=== PATIENT | male | born 1975 | race Caucasian/White ===

== ENCOUNTER 2018-10-04 20:28 | Emergency (ER) | payer OTHER, SELFPAY ==
[2018-10-04 20:35] VITALS: BP 121/78; PULSE 82; RESP 18; TEMP 37.3; O2SAT 95; BMI 21.5
--- NOTE | 2018-10-04 21:47 | ED.BACK ---
HPI - Back Pain/Injury <CÉSAR PenaBC - Last Filed: 10/04/18 21:58> General Chief Complaint: Back Pain/Injury Stated Complaint: states upper back pain Time Seen by Provider: 10/04/18 21:30 Source: patient Mode of arrival: ambulatory Limitations: no limitations History of Present Illness HPI Narrative: The patient is a 43-year-old male who presents with chief complaint of upper back pain that started last night. He states he did weight lifting 2 days ago to work out his back. He was evaluated [facility] urgent care earlier today. He states he was discharged with a list of exercises to do. He states his pain then got worse. He took ibuprofen most recently at 7:00 p.m.. He currently denies any pain on exam and interview, but states that his pain was better earlier today. He again repeats that he does not have any pain during his emergency department visit right now. He states his pain is worse with lying on his right side. He states it is approved by lying on his back or on his left side. He denies any numbness, tingling, weakness, incontinence of bowel, incontinence of bladder. He states he has taken muscle relaxers before several years ago and found them helpful at that point in time. He denies any trauma. He denies any falls. Related Data Previous Rx's Medication Instructions Recorded cyclobenzaprine 10 mg PO TID PRN #14 tab 10/04/18 Allergies Allergy/AdvReac Type Severity Reaction Status Date / Time No Known Allergies Allergy Uncoded 10/04/18 20:37 Review of Systems <GEOVANI Pena - Last Filed: 10/04/18 21:58> Review of Systems GENERAL: Denies chills, fatigue, malaise, fever, sweats. HEENT: Denies sinus pain, ear pain, sore throat, difficulty swallowing, dizziness. RESPIRATORY: Denies dyspnea, cough, wheezing, hemoptysis, sputum. CARDIOVASCULAR: Denies chest pain, palpitations, orthopnea, edema, GASTROINTESTINAL: Denies nausea, vomiting, abdominal pain, diarrhea, constipation, melena. : Denies dysuria, frequency, incontinence, hematuria, urinary retention. MUSCULOSKELETAL: See HPI SKIN: Denies rash, skin lesions, or other NEUROLOGIC: Denies weakness, headache, numbness, change in speech, confusion, seizures, incoordination. PSYCHIATRIC: No concerning psychosocial issues. 12 point review of systems is negative except for those stated above Exam <Kerlinejuwan HernandezFRANSICO sears-BC - Last Filed: 10/04/18 21:58> Narrative Exam Narrative: GENERAL: This is a well-nourished, well-developed patient, in no acute distress HEAD: Atraumatic. Normocephalic. No temporal or scalp tenderness. EYES: Pupils equal round and reactive. Extraocular motions intact. No scleral icterus. No injection or drainage. ENT: Nose without bleeding, purulent drainage or septal hematoma. Throat without erythema, tonsillar hypertrophy or exudate. Uvula midline. Airway patent. NECK: Trachea midline. No JVD or lymphadenopathy. Supple, nontender, no meningeal signs. CARDIOVASCULAR: Regular rate and rhythm without murmurs, gallops, or rubs. RESPIRATORY: Clear to auscultation. Breath sounds equal bilaterally. No wheezes, rales, or rhonchi. GASTROINTESTINAL: Abdomen soft, non-tender, nondistended. No hepato-splenomegaly, or palpable masses. No guarding. EXTREMITIES: No clubbing, cyanosis, or edema. No joint tenderness, effusion, or edema noted. Strength is equal upper and lower extremities bilaterally. Radialis and patellar reflexes are intact bilaterally. BACK: Nontender without deformity or crepitance. No flank tenderness. No pain to C-spine or spinal palpation. No pain to paraspinal muscle palpation bilaterally. NEURO: AOx3. Stable gait. Strength is equal upper and lower extremities bilaterally. No gross cranial nerve deficit. SKIN: No rash or erythema. Initial Vital Signs Initial Vital Signs: Vital Signs Temperature 99.1 F 10/04/18 20:35 Pulse Rate 82 10/04/18 20:35 Respiratory Rate 18 10/04/18 20:35 Blood Pressure 121/78 10/04/18 20:35 Pulse Oximetry 95 10/04/18 20:35 <Lux Camp DO - Last Filed: 10/05/18 03:01> Initial Vital Signs Initial Vital Signs: Vital Signs Temperature 99.1 F 10/04/18 20:35 Pulse Rate 82 10/04/18 20:35 Respiratory Rate 18 10/04/18 20:35 Blood Pressure 121/78 10/04/18 20:35 Pulse Oximetry 95 10/04/18 20:35 Course <FRANSICO Pena-BC - Last Filed: 10/04/18 21:58> Orders Ordered: Discontinued Medications Cyclobenzaprine HCl (Flexeril 10 Mg Prepack) 1 bottle MISC SEEINSTR ONE Stop: 10/04/18 21:48 Last Admin: 10/04/18 22:07 Dose: 1 bottle Vital Signs - 8 hr 10/04/18 20:35 10/04/18 22:09 Temperature 99.1 F 97.7 F Pulse Rate 82 62 Respiratory Rate 18 16 Blood Pressure 121/78 113/74 Pulse Oximetry 95 95 <Lux Camp DO - Last Filed: 10/05/18 03:01> Orders Ordered: Discontinued Medications Cyclobenzaprine HCl (Flexeril 10 Mg Prepack) 1 bottle MISC SEEINSTR ONE Stop: 10/04/18 21:48 Last Admin: 10/04/18 22:07 Dose: 1 bottle Vital Signs - 8 hr 10/04/18 20:35 10/04/18 22:09 Temperature 99.1 F 97.7 F Pulse Rate 82 62 Respiratory Rate 18 16 Blood Pressure 121/78 113/74 Pulse Oximetry 95 95 MDM - Back Pain/Injury <CÉSAR PenaBC - Last Filed: 10/04/18 21:58> MDM Narrative Medical decision making narrative: The patient is a 43-year-old male who presents with a chief complaint of upper back pain. He was already evaluated at a different emergency department earlier today. He has no red flag symptoms. He denies any pain on exam. He states he is not currently in any pain. His story correlates with muscle spasm especially given his history of recent weightlifting. I discussed at length the importance of following up with primary care provider and gave him contact information for the [facility] health human resources vice president. Discussed coming back to the emergency department for any acute concerns such as incontinence of bowel, incontinence of bladder etc. Patient has no questions or concerns upon discharge. Given the hour, I did give him a prepack of Flexeril. Discharge Plan Departure Patient Disposition: Home Clinical Impression: Back muscle spasm Discharge Date/Time: 10/04/18 22:10 Interventions: ED Discharge Assessment Last Done: 10/04/18 22:09 Instructions: DI for Back Spasm Activity Restrictions/Additional Instructions: I have given you a prescription of a muscle relaxer. The where this can be sedating. Do not combine with alcohol, driving or any other pain medication as that is a narcotic. I also suggest continuing use of NSAIDs. Please follow up with primary care provider. I have given you contact information for the [facility] human resources vice president. Please come back to emergency department for any acute concerns such as incontinence of bowel, incontinence of bladder Prescriptions: New cyclobenzaprine 10 mg tablet 10 mg PO TID PRN (Reason: muscle spasm) Qty: 14 RF: 0 Referrals: [facility] [Outside] <Lux Camp DO - Last Filed: 10/05/18 03:01> [facility] Attending Pamelaature Attestation: I was immediately available in the department for consultation. Documentation has been reviewed. I agree with assessment and plan.
--- NOTE | 2018-10-04 21:58 | PC.NURSE ---
PT states that he has a ioana the entire length of his back. No hx of upper back pain.
[2018-10-04] MEDS: CYCLOBENZAPRINE 10 MG PREPACK 1 BOTTLE MISC (22:07)
[2018-10-04 22:09] VITALS: BP 113/74; PULSE 62; RESP 16; TEMP 36.5; O2SAT 95
== END 2018-10-04 22:10 | disposition home or self-care (01) ==
PROVIDERS: Emergency Provider Nurse Practitioner Family
DX: M62.830 Muscle spasm of back (principal)
CPT/HCPCS: 99282; 99283

== ENCOUNTER 2018-10-16 13:43 | Emergency (ER) | payer OTHER, SELFPAY ==
--- NOTE | 2018-10-16 | DI.RAD.S_ITS ---
PROCEDURE: XR CHEST 1V INDICATIONS: POST THORACENTESIS CHEST TECHNIQUE: One view of the chest was acquired. COMPARISON: [facility], , XR CHEST 2V, 10/16/2018, 14:15. FINDINGS: Surgical changes and devices: None. Lungs and pleura: There is a moderate residual left effusion with left basilar atelectasis. No pneumothorax. Mediastinum: Mediastinal contours appear normal. Heart size is normal. Bones and chest wall: No suspicious bony lesions. Overlying soft tissues appear unremarkable. IMPRESSION: No pneumothorax post thoracentesis. Dictated by: Sherwin Flores M.D. on 10/16/2018 at 17:49 Approved by: Sherwin Flores M.D. on 10/16/2018 at 17:50
--- NOTE | 2018-10-16 | PATH_ITS ---
Note [facility] Accession Number: [id number] TESTS RESULT FLAG UNITS REF RANGE LAB Clinician Provided Cytology Information No. of containers..01 Other (Miscellaneous) 01 LEFT PLEURAL SPACE DIAGNOSIS: 02 LEFT PLEURAL SPACE NEGATIVE FOR MALIGNANT CELLS. THIS INTERPRETATION INCLUDES EVALUATION OF A CELL BLOCK. Pathologist ICD10: 02 J90 02 Rani Batista MD, Pathologist NPI- [id number] Sam Lowe, Supervisor [employer] ([facility]) 01 55 CC, RED, CLOUDY /LCS FLAG LEGEND: L-Low Normal,H-High Normal,LL-Alert Low,HH-Alert High <-Panic Low,>-Panic High,A-Abnormal,AA-Critical Abnormal Performed at: 01 =Z [facility] [address], [place] [address] Enrique Sommer MD, 02 LC[facility] [address] [place] [id number] Tanya Lucero MD, Performed at: 01 [facility] [address], [place], [place] [id number] MD Enrique Sommer MD Phone: [phone]
[2018-10-16 13:46] VITALS: BP 138/92; PULSE 102; RESP 15; TEMP 37.4; O2SAT 98; BMI 24.5
--- NOTE | 2018-10-16 13:49 | DI.RAD.S_ITS ---
PROCEDURE: XR CHEST 2V INDICATIONS: shortness of breath TECHNIQUE: 2 views of the chest were acquired. COMPARISON: None. FINDINGS: Surgical changes and devices: Postoperative changes of the spine are not adequately characterized. Lungs and pleura: There is a moderate to large opacity identified at the left base, which obscures the diaphragm. Additional areas of the interstitial prominence of the left hilar region is present. Mediastinum: Mediastinal contours are normal. Heart size is normal. Bones and chest wall: No suspicious bony abnormalities. Soft tissues appear unremarkable. IMPRESSION: Moderate to large left-sided pleural effusion with associated atelectasis. Superimposed pneumonia is difficult to exclude. Dictated by: Balaji Ch M.D. on 10/16/2018 at 13:25 Approved by: Balaji Ch M.D. on 10/16/2018 at 13:26
--- NOTE | 2018-10-16 13:52 | ED.SOB ---
HPI - SOB/Dyspnea General Chief Complaint: Shortness of Breath/Dyspnea Stated Complaint: Fluid in lungs Time Seen by Provider: 10/16/18 13:52 Source: patient Mode of arrival: ambulatory Limitations: no limitations History of Present Illness Patient is a 43-year-old female who was sent over by his primary doctor for concerns of an elevated D-dimer and also ?fluid on his lungs ?patient states that last week he had back pain. He states that was all throughout his back. He also states that he had some shortness of breath at that time. The back pain seems to have improved however over the past several days has had worsening shortness of breath. No chest pain. No cough. No fevers. He has had lymphoma but that was as a child. Not currently undergoing any treatment. He arrived today per instructions of his primary provider. Related Data Home Medications Medication Instructions Recorded Confirmed cyclobenzaprine 10 mg PO BEDTIME PRN 10/16/18 10/16/18 ibuprofen 1 dose PO PRN PRN 10/16/18 10/16/18 tamsulosin 0.4 mg PO DAILY PRN 10/16/18 10/16/18 Allergies Allergy/AdvReac Type Severity Reaction Status Date / Time No Known Drug Allergies Allergy Verified 10/16/18 13:46 Review of Systems Constitutional Denies fatigue and Denies fever(s) Cardiovascular Denies chest pain and Reports dyspnea Respiratory Denies chest congestion, Denies cough and Reports dyspnea Gastrointestinal Gastrointestinal: Denies abdominal pain, Denies nausea and Denies vomiting Genitourinary Denies dysuria Musculoskeletal Reports back pain Integumentary/Breasts Denies lesions and Denies rash Neurologic Denies behavioral changes Psychiatric Denies behavioral changes Endocrine Denies fatigue Hematologic/Lymphatic Denies easy bleeding and Denies easy bruising Allergic/Immunologic Denies urticaria [facility], LAT[facility] Medical History (Updated 10/16/18 @ 19:01 by Darnell Miguel DO) Lymphoma (Acute) Scoliosis (Acute) Social History Smoking Status: Smoker, status unknown Social History Smoking Status: Smoker, status unknown Exam Initial Vital Signs Initial Vital Signs: Vital Signs Temperature 99.3 F 10/16/18 13:46 Pulse Rate 102 H 10/16/18 13:46 Respiratory Rate 15 10/16/18 13:46 Blood Pressure 138/92 H 10/16/18 13:46 Pulse Oximetry 98 10/16/18 13:46 Const General: cooperative, comfortable, well developed, well groomed and No acute distress Orientation: alert, awake and oriented x3 HENMT Head: normal to inspection and normocephalic Resp Effort & Inspection: no grunting, not labored and tachypneic Auscultation: other (Decreased breath sounds on the left) Cardio Rate: tachycardic Rhythm: regular rhythm Pulses: radial pulses present GI Inspection: non-distended Palpation: soft Back/Spine/Pelvis Thoracic/Lumbar Spine: No thoracic spinal tenderness and No lumbar spinal tenderness Skin Lesions: no lesions Rashes: no rashes Neuro General: alert, awake and oriented x3 Extrem General: normal to inspection and capillary refill normal Psych Appearance: grossly normal and well kempt Scores GCS Afsaneh coma scale eye opening: Spontaneous Afsaneh coma scale verbal response: Orientated Afsaneh coma scale motor response: Obey commands Afsaneh coma scale total score: 15 Course Orders Ordered: ED Orders 10/16/18 13:49 XR chest 2V Stat EKG-12 Lead Stat Measure peak expiratory flow ONCE RT Consult Eval and Treat Now 10/16/18 14:05 B Type Natriuretic Peptide Stat Complete Blood Count AUTO DIFF Stat Comprehensive Metabolic Panel Stat D Dimer Stat Lactate (Lactic Acid) Stat Partial Thromboplastin Time Stat Prothrombin Time INR Stat Troponin I Stat 10/16/18 14:39 CT angio chest PE protocol Stat 10/16/18 16:22 US thoracentesis Stat 10/16/18 17:15 Body Fluid Culture Stat Cholesterol Body Fluid Stat Creatinine Body Fluid Stat Glucose Body Fluid Stat LDH Body Fluid Stat Total Protein Body Fluid Stat Triglycerides Body Fluid Stat 10/16/18 18:41 Lactate Dehydrogenase Stat Discontinued Medications Sodium Chloride (Normal Saline 0.9%) 1,000 mls @ 1,000 mls/hr IV BOLUS ONE Stop: 10/16/18 15:46 Last Infusion: 10/16/18 16:20 Dose: 0 mls/hr Admin: 10/16/18 15:03 Dose: 1,000 mls/hr Vital Signs - 8 hr 10/16/18 13:46 10/16/18 15:13 10/16/18 15:33 Temperature 99.3 F Pulse Rate 102 H 96 H 75 Respiratory Rate 15 20 18 Blood Pressure 138/92 H Blood Pressure [Right Arm] 139/92 H Pulse Oximetry 98 100 100 MDM - SOB/Dyspnea Lab Data Attestation: I reviewed the patient's lab results. Result diagrams: 10/16/18 14:05 10/16/18 14:05 Lab Results 10/16/18 10/16/18 10/16/18 Range/Units 14:05 14:05 14:05 WBC 8.0 (4.5-11.0) X10^3/uL RBC 4.33 L (4.5-5.9) X10^6/uL Hgb 13.4 L (13.5-17.5) g/dL Hct 37.9 L (41-53) % MCV 87.5 (80-100) fL MCH 30.9 (26-34) PG MCHC 35.3 (30-36) % RDW 12.1 (11.6-14.8) % Plt Count 314 (150-400) X10^3/uL Neut % (Auto) 78.4 H (50-75) % Lymph % (Auto) 9.7 L (25-40) % [place] % (Auto) 11.1 (3-14) % Eos % (Auto) 0.6 L (2-4) % Baso % (Auto) 0.2 (0-2) % Neut # (Auto) 6200 (0665-0421) /uL Lymph # (Auto) 800 L (1583-2829) /uL [place] # (Auto) 900 (0-900) /uL Eos # (Auto) 0 (0-450) /uL Baso # (Auto) 0 (0-100) /uL PT (10.1-12.7) SECONDS INR (0.9-1.3) APTT (26.4-36.2) SECONDS D-Dimer (<230) ng/mL Sodium 136 L (137-145) mmol/L Potassium 4.2 (3.4-5.1) mmol/L Chloride 98 (98-107) mmol/L Carbon Dioxide 28 (22-32) mmol/L BUN 15 (9-20) mg/dL Creatinine 0.80 (0.66-1.25) mg/dL Estimated GFR > 60.0 (>60) mL/min BUN/Creatinine Ratio 18.8 (6-22) Glucose 97 (70-100) mg/dL Lactate 0.9 (0.7-2.1) mmol/L Calcium 9.4 (8.4-10.2) mg/dL Total Bilirubin 0.8 (0.2-1.3) mg/dL AST 22 (17-59) IU/L ALT 30 (21-72) IU/L Alkaline Phosphatase 65 (38-126) U/L Troponin I (0.01-0.034) ng/mL B-Natriuretic Peptide (<100) Total Protein 7.8 (6.3-8.2) g/dL Albumin 4.1 (3.5-5.0) g/dL Globulin 3.7 (1.7-4.1) g/dL Albumin/Globulin Ratio 1.1 (1.0-2.8) Fluid Glucose mg/dL Fluid Total Protein g/dL Fluid LDH U/L Fluid Creatinine mg/dL Fluid Cholesterol mg/dL Fluid Triglycerides mg/dL 10/16/18 10/16/18 10/16/18 Range/Units 14:05 14:05 14:05 WBC (4.5-11.0) X10^3/uL RBC (4.5-5.9) X10^6/uL Hgb (13.5-17.5) g/dL Hct (41-53) % MCV (80-100) fL MCH (26-34) PG MCHC (30-36) % RDW (11.6-14.8) % Plt Count (150-400) X10^3/uL Neut % (Auto) (50-75) % Lymph % (Auto) (25-40) % [place] % (Auto) (3-14) % Eos % (Auto) (2-4) % Baso % (Auto) (0-2) % Neut # (Auto) (9627-9759) /uL Lymph # (Auto) (6982-5118) /uL [place] # (Auto) (0-900) /uL Eos # (Auto) (0-450) /uL Baso # (Auto) (0-100) /uL PT (10.1-12.7) SECONDS INR (0.9-1.3) APTT (26.4-36.2) SECONDS D-Dimer 1036 H (<230) ng/mL Sodium (137-145) mmol/L Potassium (3.4-5.1) mmol/L Chloride (98-107) mmol/L Carbon Dioxide (22-32) mmol/L BUN (9-20) mg/dL Creatinine (0.66-1.25) mg/dL Estimated GFR (>60) mL/min BUN/Creatinine Ratio (6-22) Glucose (70-100) mg/dL Lactate (0.7-2.1) mmol/L Calcium (8.4-10.2) mg/dL Total Bilirubin (0.2-1.3) mg/dL AST (17-59) IU/L ALT (21-72) IU/L Alkaline Phosphatase (38-126) U/L Troponin I < 0.012 (0.01-0.034) ng/mL B-Natriuretic Peptide < 100 (<100) Total Protein (6.3-8.2) g/dL Albumin (3.5-5.0) g/dL Globulin (1.7-4.1) g/dL Albumin/Globulin Ratio (1.0-2.8) Fluid Glucose mg/dL Fluid Total Protein g/dL Fluid LDH U/L Fluid Creatinine mg/dL Fluid Cholesterol mg/dL Fluid Triglycerides mg/dL 10/16/18 10/16/18 10/16/18 Range/Units 14:05 17:15 17:15 WBC (4.5-11.0) X10^3/uL RBC (4.5-5.9) X10^6/uL Hgb (13.5-17.5) g/dL Hct (41-53) % MCV (80-100) fL MCH (26-34) PG MCHC (30-36) % RDW (11.6-14.8) % Plt Count (150-400) X10^3/uL Neut % (Auto) (50-75) % Lymph % (Auto) (25-40) % [place] % (Auto) (3-14) % Eos % (Auto) (2-4) % Baso % (Auto) (0-2) % Neut # (Auto) (8432-7891) /uL Lymph # (Auto) (7080-3233) /uL [place] # (Auto) (0-900) /uL Eos # (Auto) (0-450) /uL Baso # (Auto) (0-100) /uL PT 15.1 H (10.1-12.7) SECONDS INR 1.3 (0.9-1.3) APTT 35 (26.4-36.2) SECONDS D-Dimer (<230) ng/mL Sodium (137-145) mmol/L Potassium (3.4-5.1) mmol/L Chloride (98-107) mmol/L Carbon Dioxide (22-32) mmol/L BUN (9-20) mg/dL Creatinine (0.66-1.25) mg/dL Estimated GFR (>60) mL/min BUN/Creatinine Ratio (6-22) Glucose (70-100) mg/dL Lactate (0.7-2.1) mmol/L Calcium (8.4-10.2) mg/dL Total Bilirubin (0.2-1.3) mg/dL AST (17-59) IU/L ALT (21-72) IU/L Alkaline Phosphatase (38-126) U/L Troponin I (0.01-0.034) ng/mL B-Natriuretic Peptide (<100) Total Protein (6.3-8.2) g/dL Albumin (3.5-5.0) g/dL Globulin (1.7-4.1) g/dL Albumin/Globulin Ratio (1.0-2.8) Fluid Glucose 77 mg/dL Fluid Total Protein 5.3 g/dL Fluid LDH 1517 U/L Fluid Creatinine 0.7 mg/dL Fluid Cholesterol 110 mg/dL Fluid Triglycerides 28 mg/dL Imaging Data Chest x-ray: Radiologist's impression: [address] [address] XRay Report Signed Patient: Ankit Orozco PMR#: [id number] : 1975Acct:[id number] Age/Sex: 43 / MDate of Service: 10/16/18 Loc: ED Accession Number: [id number] Procedure: XR chest 2V Ordering Provider: Darnell Miguel D.O. PROCEDURE: XR CHEST 2V INDICATIONS: shortness of breath TECHNIQUE: 2 views of the chest were acquired. COMPARISON: None. FINDINGS: Surgical changes and devices: Postoperative changes of the spine are not adequately characterized. Lungs and pleura: There is a moderate to large opacity identified at the left base, which obscures the diaphragm. Additional areas of the interstitial prominence of the left hilar region is present. Mediastinum: Mediastinal contours are normal. Heart size is normal. Bones and chest wall: No suspicious bony abnormalities. Soft tissues appear unremarkable. IMPRESSION: Moderate to large left-sided pleural effusion with associated atelectasis. Superimposed pneumonia is difficult to exclude. Dictated by: Balaji Ch M.D. on 10/16/2018 at 13:25 Approved by: Balaji Ch M.D. on 10/16/2018 at 13:26 CT scan - chest: Radiologist's impression: [address] [address] [address] Scan Report Signed Patient: Ankit Orozco PMR#: [id number] : 1975Acct:[id number] Age/Sex: 43 / MDate of Service: 10/16/18 Loc: ED Accession Number: [id number] Procedure: CT angio chest PE protocol Ordering Provider: Darnell Miguel D.O. PROCEDURE: CT ANGIO CHEST PE PROTOCOL INDICATIONS: Chest pain, shortness of breath, tachycardia TECHNIQUE: After the administration of intravenous contrast, 2 mm thick sections acquired from the pulmonary apices to the posterior costophrenic angles. 3-dimensional maximum intensity projection (MIP) coronal and sagittal reformats were then acquired through the thorax. For radiation dose reduction, the following was used: automated exposure control, adjustment of mA and/or kV according to patient size. COMPARISON: [facility], CR, XR CHEST 2V, 10/16/2018, 14:15. FINDINGS: Image quality: Excellent. Pulmonary arteries: Pulmonary arteries are normal in size, and demonstrate no intraluminal filling defects to suggest central pulmonary embolism. Lungs and pleura: There is a moderate to large left pleural effusion and left basilar compression atelectasis. There is pleural nodularity along the left hemithorax. Mild dependent atelectasis at the right lung base. No pneumothorax. Central and peripheral airways are patent. Mediastinum: Heart size is normal, without pericardial effusion. There is a 1.2 x 2.8 cm subcarinal lymph node. Thoracic aorta is normal in caliber and enhancement. Esophagus is normal in caliber, without hiatal hernia. Bones and chest wall: No suspicious bony lesions. Ribs and thoracic spine appear intact. There is lucency in the anterior aspect of T9 vertebral body. Thyroid gland is normal. No axillary or supraclavicular adenopathy. There is fusion in the thoracic and upper lumbar spine. Abdomen: Visualized upper abdominal solid organs appear normal in the early arterial phase of enhancement. IMPRESSION: 1. No evidence for central pulmonary embolism. 2. Moderate to large left effusion with left basilar atelectasis. There is pleural nodularity along the left hemithorax. Cannot rule out malignant effusion. 3. Mildly enlarged subcarinal lymph node. This finding is nonspecific and may be secondary to infectious, inflammatory or neoplastic etiology. Recommend clinical correlation and follow up. 4. Lucency in the anterior aspect of the T9 vertebral body, uncertain clinical significance. If clinically indicated, MRI or whole-body bone scan may be obtained for further origin. The result was discussed with Dr. Miguel. Dictated by: Sherwin Flores M.D. on 10/16/2018 at 15:35 Approved by: Sherwin Flores M.D. on 10/16/2018 at 15:51 ECG Data Attestation: I personally reviewed and interpreted this ECG as follows: Prior ECG tracings: not available for review Interpretation: Sinus rhythm Ventricular rate of 94 Normal axis Normal QRS Normal QTC No ST T wave changes MDM Narrative Medical decision making narrative: Patient was tachypneic however not in any respiratory distress. The CT scan shows no signs of pulmonary embolism but he does have a fairly large left-sided pleural effusion. He did have a thoracentesis performed by Radiology with removal of 900 cc of fluid. Radiologist thought that he could have removed more however the patient was having some shortness of breath and chest pain at the time. Afterwards patient states that he is feeling better. The labs that have returned are concerning for and exudate. Given his history of lymphoma there is concern for for malignancy. There were still some labs pending at the time of discharge. I feel the patient is safe for discharge. He was informed that tomorrow morning he needed to contact his primary doctor to discuss the follow-up of the CT scan and also to follow up with the results of the cytology of the pleural fluid. Patient's mother and father were at bedside. The patient stated that it was okay for any discussion to be had regarding his medical issues with his mother. He states that he has ?learning disabilities ?it is sometimes hard for him to process information. Patient was given return precautions. He expressed understanding and agreement Discharge Plan Departure Patient Disposition: Home Clinical Impression: Pleural effusion Instructions: DI for Pleural Effusion Activity Restrictions/Additional Instructions: Your procedure that was done today was called a thoracentesis. Approximately 900 cc of fluid was removed from the left side of your chest. There can be some complications to this procedure. If you start having chest pain or problems breathing or fevers please return to the emergency department for further evaluation. Many of the labs that were ordered today on this fluid that was removed are not resulted by the time you were discharged. Tomorrow morning you need to contact your primary care provider to discuss follow-up at the beginning of next week to go over the results of the CT scan and also the fluid. Again please feel free to return to the emergency department for any new or worsening symptoms. Prescriptions: No Action tamsulosin 0.4 mg capsule 0.4 mg PO DAILY PRN (Reason: urination) RF: 0 ibuprofen 200 mg Tablet 1 dose PO PRN PRN (Reason: pain) RF: 0 cyclobenzaprine 10 mg tablet 10 mg PO BEDTIME PRN (Reason: Muscle Spasm) RF: 0
[2018-10-16 14:16] LABS: Add Manual Diff / Slide Review NO; Basophils Absolute Auto 0 /uL (0-100); Basophils Percent Auto 0.2 % (0-2); Eosinophils Absolute Auto 0 /uL (0-450); Eosinophils Percent Auto 0.6 % (2-4); Hematocrit 37.9 % (41-53); Hemoglobin 13.4 g/dL (13.5-17.5); Lymphocytes Absolute Auto 800 /uL (1100-4500); Lymphocytes Percent Auto 9.7 % (25-40); Mean Corpuscular HGB Conc 35.3 % (30-36); Mean Corpuscular Hemoglobin 30.9 PG (26-34); Mean Corpuscular Volume 87.5 fL (80-100); Monocytes Absolute Auto 900 /uL (0-900); Monocytes Percent Auto 11.1 % (3-14); Neutrophils Absolute Auto 6200 /uL (1500-7000); Neutrophils Percent Auto 78.4 % (50-75); Platelet Count 314 X10^3/uL (150-400); Red Blood Cell Count 4.33 X10^6/uL (4.5-5.9); Red Cell Distribution Width 12.1 % (11.6-14.8)
[2018-10-16 14:33] LABS: D Dimer 1036 ng/mL (<230)
[2018-10-16 14:38] LABS: Lactate (Lactic Acid) 0.9 mmol/L (0.7-2.1)
--- NOTE | 2018-10-16 14:39 | DI.CT.S_ITS ---
PROCEDURE: CT ANGIO CHEST PE PROTOCOL INDICATIONS: Chest pain, shortness of breath, tachycardia TECHNIQUE: After the administration of intravenous contrast, 2 mm thick sections acquired from the pulmonary apices to the posterior costophrenic angles. 3-dimensional maximum intensity projection (MIP) coronal and sagittal reformats were then acquired through the thorax. For radiation dose reduction, the following was used: automated exposure control, adjustment of mA and/or kV according to patient size. COMPARISON: [facility], CR, XR CHEST 2V, 10/16/2018, 14:15. FINDINGS: Image quality: Excellent. Pulmonary arteries: Pulmonary arteries are normal in size, and demonstrate no intraluminal filling defects to suggest central pulmonary embolism. Lungs and pleura: There is a moderate to large left pleural effusion and left basilar compression atelectasis. There is pleural nodularity along the left hemithorax. Mild dependent atelectasis at the right lung base. No pneumothorax. Central and peripheral airways are patent. Mediastinum: Heart size is normal, without pericardial effusion. There is a 1.2 x 2.8 cm subcarinal lymph node. Thoracic aorta is normal in caliber and enhancement. Esophagus is normal in caliber, without hiatal hernia. Bones and chest wall: No suspicious bony lesions. Ribs and thoracic spine appear intact. There is lucency in the anterior aspect of T9 vertebral body. Thyroid gland is normal. No axillary or supraclavicular adenopathy. There is fusion in the thoracic and upper lumbar spine. Abdomen: Visualized upper abdominal solid organs appear normal in the early arterial phase of enhancement. IMPRESSION: 1. No evidence for central pulmonary embolism. 2. Moderate to large left effusion with left basilar atelectasis. There is pleural nodularity along the left hemithorax. Cannot rule out malignant effusion. 3. Mildly enlarged subcarinal lymph node. This finding is nonspecific and may be secondary to infectious, inflammatory or neoplastic etiology. Recommend clinical correlation and follow up. 4. Lucency in the anterior aspect of the T9 vertebral body, uncertain clinical significance. If clinically indicated, MRI or whole-body bone scan may be obtained for further origin. The result was discussed with Dr. Miguel. Dictated by: Sherwin Flores M.D. on 10/16/2018 at 15:35 Approved by: Sherwin Flores M.D. on 10/16/2018 at 15:51
[2018-10-16 14:40] LABS: Alanine Aminotransferase 30 IU/L (21-72); Albumin 4.1 g/dL (3.5-5.0); Albumin Globulin Ratio 1.1 (1.0-2.8); Alkaline Phosphatase 65 U/L (38-126); Aspartate Aminotransferase 22 IU/L (17-59); BUN Creatinine Ratio 18.8 (6-22); Bilirubin Total 0.8 mg/dL (0.2-1.3); Blood Urea Nitrogen 15 mg/dL (9-20); Calcium 9.4 mg/dL (8.4-10.2); Carbon Dioxide 28 mmol/L (22-32); Chloride 98 mmol/L (98-107); Estimated Glomerular Filt Rate > 60.0 mL/min (>60); Globulin 3.7 g/dL (1.7-4.1); Glucose 97 mg/dL (70-100); HEMOLYSIS < 15 (0-50); Potassium 4.2 mmol/L (3.4-5.1); Sodium 136 mmol/L (137-145); Total Protein 7.8 g/dL (6.3-8.2)
[2018-10-16 14:46] LABS: B Type Natriuretic Peptide < 100 (<100)
[2018-10-16 14:51] LABS: Troponin I < 0.012 ng/mL (0.01-0.034)
[2018-10-16] MEDS: SODIUM CHLORIDE 0.9% 1,000 ML 1000 ML IV (15:03)
[2018-10-16 15:13] VITALS: PULSE 96; RESP 20; O2SAT 100
[2018-10-16 15:33] VITALS: BP 139/92; PULSE 75; RESP 18; O2SAT 100
[2018-10-16 15:54] LABS: INR 1.3 (0.9-1.3); Prothrombin Time 15.1 SECONDS (10.1-12.7)
[2018-10-16 15:57] LABS: PTT Partial Thromboplastin Tim 35 SECONDS (26.4-36.2)
--- NOTE | 2018-10-16 16:22 | DI.US.S_ITS ---
PROCEDURE: US THORACENTESIS INDICATIONS: LEFT SIDED EFFUSION TECHNIQUE: The indications, alternatives, benefits, risks, and complications of the procedure were explained to the patient. Written informed consent was obtained and placed in the chart. The chest was examined sonographically, and an appropriate site was chosen for thoracentesis. The skin was prepared and draped in the usual sterile fashion, and 1% lidocaine was infiltrated from the skin down through the pleural surface. A 19-gauge catheter-covered needle was then introduced into the pleural space, the catheter was advanced and the needle was withdrawn, and thereafter pleural fluid was aspirated. The catheter was then removed and a dressing was applied. COMPARISON: [facility], CR, XR CHEST 1V, 10/16/2018, 17:37. FINDINGS: Access site: Left hemithorax. Needle: One-Step centesis catheter with introducer needle. Fluid volume and description: 1000 mL,Bloody Fluid sent for diagnostic testing: per ordering physician Medications: 1% lidocaine for local anaesthesia. Complications: None; post-procedural chest radiograph demonstrates no pneumothorax. IMPRESSION: Successful ultrasound-guided thoracentesis. Dictated by: Sherwin Flores M.D. on 10/17/2018 at 8:28 Approved by: Sherwin Flores M.D. on 10/17/2018 at 8:29
[2018-10-16 18:21] LABS: Cholesterol Body Fluid 110 mg/dL; Creatinine Body Fluid 0.7 mg/dL; Glucose Body Fluid 77 mg/dL; LDH Body Fluid 1517 U/L; Total Protein Body Fluid 5.3 g/dL; Triglycerides Body Fluid 28 mg/dL
[2018-10-16 19:14] VITALS: BP 134/81; PULSE 81; RESP 32; O2SAT 100
[2018-10-16 19:22] LABS: Lactate Dehydrogenase 342 U/L (313-618)
== END 2018-10-16 19:16 | disposition home or self-care (01) ==
PROVIDERS: Emergency Provider Emergency Medicine
DX: J90 Pleural effusion, not elsewhere classified (principal); R00.0 Tachycardia, unspecified
CPT/HCPCS: 32555; 36591; 71045; 71046; 71275; 80053; 82465; 82565; 82945; 83605; 83615; 83880; 84157; 84478; 84484; 85025; 85379; 85610; 85730; 87070; 87075; 87205; 93005; 96360; 99283; 99285